=== PATIENT | male | born 1970 | race Caucasian/White ===

== ENCOUNTER → 2018-04-11 | Outpatient (CLI) | payer OTHER | END | disposition home or self-care (01) | LOC: CFH 10:44 | PROVIDERS: ATTEND Internal Medicine Cardiovascular Disease | DX: I25.10 Atherosclerotic heart disease of native coronary artery without angina pectoris (principal); I25.2 Old myocardial infarction; Z95.5 Presence of coronary angioplasty implant and graft | CPT/HCPCS: 93306 ==

== ENCOUNTER → 2018-07-26 | Outpatient (CLI) | payer OTHER | END | disposition home or self-care (01) | LOC: CFH 09:05 | PROVIDERS: ATTEND Family Medicine | DX: K76.0 Fatty (change of) liver, not elsewhere classified (principal); N20.0 Calculus of kidney | CPT/HCPCS: 74176 ==

== ENCOUNTER 2019-01-02 02:37 | Emergency (ER) | payer OTHER ==
[~2019-01-02] VITALS: Ht 172.7 cm; Wt 97.8 kg
--- NOTE | 2019-01-02 02:53 | NUR ---
PT PRESENTED WITH C/O LLQ ABD PAIN, HX KIDNEY STONES, 1 EPISODE VOMITING. MONITORS APPLIED, SIDERAILS UP X2, CALL LIGHT WITHIN REACH. AWAITING ERP FOR EVAL
[2019-01-02] MEDS ORDERED: SIMV40TA3 PO (02:54)
--- NOTE | 2019-01-02 03:07 | NUR ---
PT UP TO RR WITH STEADY GAIT
--- NOTE | 2019-01-02 03:08 | NUR ---
URINE SAMPLE TAKEN TO LAB
[2019-01-02] MEDS ORDERED: KETOROLAC 30 MG/1 ML ONE (03:15)
[2019-01-02] MEDS ORDERED: MORPHINE SULFATE 4 MG/ML, 1ML ONE (03:15)
[2019-01-02] MEDS ORDERED: ONDANSETRON 2MG/ML, 2ML ONE (03:15)
[2019-01-02 03:16] LABS: BASOPHILS # (AUTO) 0.02 x10^3/uL (0-0.1); BASOPHILS % (AUTO) 0 % (0-1); EOSINOPHILS # (AUTO) 0.01 x10^3/uL (0-0.4); EOSINOPHILS % (AUTO) 0 % (1-7); LYMPHOCYTES # (AUTO) 1.09 x10^3/uL (1-3.4); LYMPHOCYTES % (AUTO) 7 % (22-44); MD NO; MEAN CORPUSCULAR HEMOGLOBIN 29.2 pg (27.5-34.5); MEAN CORPUSCULAR HGB CONC 34.4 g/dL (33.2-36.2); MEAN CORPUSCULAR VOLUME 84.8 fL (81-97); MEAN PLATELET VOLUME 7.7 fL (7.4-10.4); MONOCYTES # (AUTO) 0.98 x10^3/uL (0.2-0.8); MONOCYTES % (AUTO) 7 % (2-9); NEUTROPHILS # (AUTO) 12.59 x10^3/uL (1.8-6.8); NEUTROPHILS % (AUTO) 86 % (42-75); PLATELET COUNT 257 x10^3/uL (130-400); RED BLOOD COUNT 5.66 x10^6/uL (4.38-5.82); RED CELL DISTRIBUTION WIDTH 13.4 % (9.4-14.8)
[2019-01-02 03:18] LABS: MICROSCOPIC NOT IND
--- NOTE | 2019-01-02 03:18 | NUR ---
PT TO XRAY
[2019-01-02 03:24] LABS: CULTURE INDICATED? NO
--- NOTE | 2019-01-02 03:27 | NUR ---
PT AT ULTRASOUND
[2019-01-02 03:30] LABS: ALANINE AMINOTRANSFERASE 58 U/L (12-78); ALBUMIN 4.2 g/dL (3.4-5.0); ANION GAP 5 mmol/L (5-15); CALCIUM 9.6 mg/dL (8.5-10.1); CHLORIDE 104 mmol/L (98-107); CREATININE 1.53 mg/dL (0.7-1.3)
[2019-01-02] MEDS ORDERED: SODIUM CHLORIDE FLUSH 10ML SYR IVF ONE (03:30)
[2019-01-02] MEDS ORDERED: ONDANSETRON 2MG/ML, 2ML IVPush ONE (03:30)
[2019-01-02] MEDS ORDERED: KETOROLAC 30 MG/1 ML IVPush ONE (03:30)
[2019-01-02] MEDS ORDERED: MORPHINE SULFATE 4 MG/ML, 1ML IVPush PRN (03:30)
[2019-01-02 03:32] LABS: ALKALINE PHOSPHATASE 106 U/L (45-117); BILIRUBIN,TOTAL 0.9 mg/dL (0.2-1.0); TOTAL PROTEIN 7.6 g/dL (6.4-8.2)
--- NOTE | 2019-01-02 03:42 | NUR ---
PT UP TO RR WITH STEADY GAIT
--- NOTE | 2019-01-02 03:54 | NUR ---
iv site started, pt medicated per mar.
[2019-01-02 04:10] VITALS: BP 165/85
== END 2019-01-02 04:46 | disposition home or self-care (01) ==
LOC: ED 04:35
DX: R10.32 Left lower quadrant pain (principal); I25.2 Old myocardial infarction
CPT/HCPCS: 36415; 74018; 76770; 80053; 81003; 83690; 85025; 96374; 96375; 99284; J1885; J2405

== ENCOUNTER 2021-05-28 14:59 | Outpatient (CLI) | payer OTHER ==
[~2021-05-28 14:59] MED LIST: SIMV40TA20 PO
== END 2021-05-28 23:59 | disposition home or self-care (01) ==
LOC: CFH 14:59
PROVIDERS: ATTEND Internal Medicine Cardiovascular Disease
DX: I45.19 Other right bundle-branch block (principal); I25.2 Old myocardial infarction; I10 Essential (primary) hypertension
CPT/HCPCS: 93306